=== PATIENT | female | born 1980 | race Caucasian/White ===

== ENCOUNTER 2018-12-05 20:12 | Inpatient (IN) | payer MEDICAID ==
[2018-12-05] MEDS ORDERED: LACTATED RINGER'S 1,000 ML IV (20:39)
[2018-12-05] MEDS ORDERED: METHYLERGONOVINE 0.2 MG INJ IM (21:00)
[2018-12-05] MEDS ORDERED: MISOPROSTOL 200 MCG TAB PR (21:00)
[2018-12-05] MEDS ORDERED: LIDOCAINE 1% (MPF) 30 ML INJ INJ (21:00)
[2018-12-05] MEDS ORDERED: OXYTOCIN 30 UNITS/LR 500 ML IV (21:00)
[2018-12-05] MEDS ORDERED: MINERAL OIL LIGHT 10 ML VIAL TOP (21:00)
[2018-12-05] MEDS ORDERED: BUTORPHANOL 2 MG INJ IV ×2 (21:00)
[2018-12-05] MEDS ORDERED: CARBOPROST 250 MCG INJ IM (21:00)
[2018-12-05] MEDS ORDERED: IBUPROFEN 600 MG TAB PO (21:00)
[2018-12-05] MEDS: LACTATED RINGER'S 1,000 ML IV ×2 (21:06→22:17)
[2018-12-05 21:18] LABS: ADD MAN DIFF? NO
[2018-12-05 21:22] LABS: BASOPHILS % 0.4 % (0.0-2.0); EOSINOPHILS # 0.1 10^3/ul (0.0-0.5); EOSINOPHILS % 0.8 % (0.0-7.0); HEMOGLOBIN 13.6 g/dl (12.0-16.0); LYMPHOCYTES # 1.8 10^3/ul (0.8-2.9); LYMPHOCYTES % 23.3 % (15.0-51.0); MEAN CORPUSCULAR HEMOGLOBIN 30.4 pg (29.0-33.0); MEAN CORPUSCULAR VOLUME 89.3 fl (82.0-101.0); MEAN PLATELET VOLUME 12.2 fl (7.4-10.4); MONOCYTE # 0.5 10^3/ul (0.3-0.9); MONOCYTES % 5.8 % (0.0-11.0); NEUTROPHIL # 5.4 10^3/ul (1.6-7.5); NEUTROPHILS % 69.3 % (39.0-77.0); PLATELET COUNT 175 10^3/UL (140-415); RED BLOOD COUNT 4.48 10^6/ul (4.20-5.40); RED CELL DISTRIBUTION WIDTH 13.3 % (11.5-14.5)
[2018-12-05 21:22] LABS: WHITE BLOOD COUNT 7.8 10^3/ul (4.8-10.8)
[2018-12-05 21:42] LABS: INR 0.87; PROTIME 11.9 Sec (11.9-14.9); PT RATIO 0.9
[2018-12-05 21:43] LABS: PARTIAL THROMBOPLASTIN TIME 26.1 Sec (23.0-35.0)
[2018-12-05] MEDS ORDERED: FENTAnyl 2MCG/ML-ROPIV 0.2% 100 ML (21:54)
[2018-12-05] MEDS ORDERED: NALOXONE (0.4 MG/ML) INJ IV (22:00)
[2018-12-05] MEDS ORDERED: DIPHENHYDRAMINE 50 MG INJ IV (22:00)
[2018-12-05] MEDS ORDERED: ONDANSETRON 4 MG INJ IV (22:00)
[2018-12-05] MEDS: OXYTOCIN 30 UNITS/LR 500 ML IV ×2 (22:54→23:57)
[2018-12-06] MEDS: OXYTOCIN 30 UNITS/LR 500 ML IV ×2 (00:03→07:30)
[2018-12-06] MEDS: FENTAnyl 2MCG/ML-ROPIV 0.2% 100 ML BAG EPI (00:07)
[2018-12-06] MEDS ORDERED: OXYTOCIN 30 UNITS/LR 500 ML IV (01:30)
[2018-12-06] MEDS ORDERED: ACETAMINOPHEN 325 MG TAB PO ×2 (01:30)
[2018-12-06] MEDS ORDERED: DIBUCAINE 1% 30 GM OINT TOP (01:30)
[2018-12-06] MEDS ORDERED: CARBOPROST 250 MCG INJ IM (01:30)
[2018-12-06] MEDS ORDERED: MISOPROSTOL 200 MCG TAB PR (01:30)
[2018-12-06] MEDS ORDERED: METHYLERGONOVINE 0.2 MG INJ IM (01:30)
[2018-12-06] MEDS ORDERED: ONDANSETRON 4 MG INJ IV (01:30)
[2018-12-06] MEDS: BENZOCAINE 20% 56 ML SPRAY TOP (05:06)
[2018-12-06] MEDS: LANOLIN HPA 1 PKT TOP (05:06)
[2018-12-06] MEDS: WITCH HAZEL/GLYCERIN PAD PR (05:06)
[2018-12-06] MEDS: IBUPROFEN 600 MG TAB PO ×2 (06:35→17:10)
[2018-12-06 08:56] LABS: ADD MAN DIFF? NO
[2018-12-06 08:59] LABS: BASOPHILS % 0.1 % (0.0-2.0); EOSINOPHILS % 0.3 % (0.0-7.0); HEMATOCRIT 38.8 % (37.0-47.0); HEMOGLOBIN 13.2 g/dl (12.0-16.0); LYMPHOCYTES # 1.5 10^3/ul (0.8-2.9); LYMPHOCYTES % 12.6 % (15.0-51.0); MEAN CORPUSCULAR HEMOGLOBIN 30.1 pg (29.0-33.0); MEAN CORPUSCULAR VOLUME 88.6 fl (82.0-101.0); MEAN PLATELET VOLUME 12.1 fl (7.4-10.4); MONOCYTE # 0.6 10^3/ul (0.3-0.9); MONOCYTES % 5.3 % (0.0-11.0); NEUTROPHIL # 9.7 10^3/ul (1.6-7.5); NEUTROPHILS % 81.4 % (39.0-77.0); PLATELET COUNT 164 10^3/UL (140-415); RED BLOOD COUNT 4.38 10^6/ul (4.20-5.40); RED CELL DISTRIBUTION WIDTH 13.4 % (11.5-14.5)
[2018-12-06 08:59] LABS: WHITE BLOOD COUNT 11.9 10^3/ul (4.8-10.8)
[2018-12-06] MEDS: LACTATED RINGER'S 1,000 ML IV* (09:17)
[2018-12-06] MEDS: LACTATED RINGER'S 1,000 ML IV (12:39)
[2018-12-06 15:22] LABS: RAPID PLASMA REAGIN NONREACTIVE (NR)
[2018-12-06] MEDS: SENNA/DOCUSATE NA (8.6MG/50MG) TAB PO (21:55)
[2018-12-06] MEDS: MAGNESIUM HYDROXIDE 30ML CUP PO (22:07)
[2018-12-07] MEDS ORDERED: PROVENTIL HFA 6.7GM INHALER (07:59)
== END 2018-12-07 14:55 | disposition home or self-care (01) | DRG 807 ==
LOC: OBT 20:12 → PP1 12-06 02:21 → L-D 20:12 → OBT 20:39 → L-D 20:39
PROVIDERS: Obstetrics & Gynecology
PROC: 4A1HXCZ Monitoring of Products of Conception, Cardiac Rate, External Approach (ICD-10-PCS; 2018-12-05)
PROC: 10D07Z6 Extraction of Products of Conception, Vacuum, Via Natural or Artificial Opening (ICD-10-PCS; principal; 2018-12-06)
PROC: 0W8NXZZ Division of Female Perineum, External Approach (ICD-10-PCS; 2018-12-06)
DX: O69.81X0 Labor and delivery complicated by cord around neck, without compression, not applicable or unspecified (principal); Z37.0 Single live birth; O36.8330 Maternal care for abnormalities of the fetal heart rate or rhythm, third trimester, not applicable or unspecified; Z3A.38 38 weeks gestation of pregnancy
CPT/HCPCS: 62322; 76815; 76818; 85025; 85610; 85730; 86592; 86850; 86900; 86901; 99464